=== PATIENT | female | born 1945 | race Caucasian/White ===

== ENCOUNTER 2018-07-20 07:57 | Emergency (ER) | payer MEDICARE ==
[~2018-07-20] VITALS: Ht 160 cm; Wt 71.8 kg
[~2018-07-20 07:57] MED LIST: BIOT25008 PO; CHOL100046 PO; DOCU-28 PO; DULO-31 PO; LEVO100T46 PO; MULT-1085 PO; PANT40TA39 PO; SUMA25TA35 PO; VITA100T PO
[2018-07-20] MEDS ORDERED: ipratropium/albuterol 3ml nebule NEB ONE (08:45)
[2018-07-20] MEDS ORDERED: predniSONE 20 mg tablet PO ONE (08:45)
[2018-07-20] MEDS ORDERED: normal saline 1000ML IV soln IVB ONE (08:45)
[2018-07-20] MEDS ORDERED: BENZ-16 PO (10:06)
[2018-07-20] MEDS ORDERED: PRED20TA PO ×2 (10:06→10:45)
[2018-07-20] MEDS ORDERED: ALBU18HF2 INH (10:06)
[2018-07-20] MEDS ORDERED: benzonatate 100mg capsule PO ONE (10:25)
[2018-07-20 10:38] VITALS: BP 124/71
--- NOTE | 2018-07-20 10:38 | NUR ---
relieving RN for break, pt is resting quietly on gurney, resp even and unlabored,
[2018-07-20 10:42] LABS: BASOPHILS % (AUTO) 0.3 % (0-1); EOSINOPHILS % (AUTO) 0.5 % (0-6); HEMATOCRIT 36.1 % (35.0-45.0); HEMOGLOBIN 12.1 g/dl (12.0-16.0); LYMPHOCYTES # (AUTO) 0.4 X10'3 (1.1-4.8); LYMPHOCYTES % (AUTO) 9.6 % (21-51); MEAN CORPUSCULAR HEMOGLOBIN 31.6 PG (27.0-31.0); MEAN CORPUSCULAR HGB CONC 33.6 g/dL (33.0-36.5); MEAN CORPUSCULAR VOLUME 93.9 FL (78-98); MEAN PLATELET VOLUME 8.3 FL (7.4-10.4); MONOCYTES # (AUTO) 0.5 X10'3 (0-0.9); MONOCYTES % (AUTO) 11.7 % (2-12); NEUTROPHILS # (AUTO) 3.3 X10'3 (1.8-7.7); NEUTROPHILS % (AUTO) 77.9 % (42-75); PLATELET COUNT 158 X10'3 (140-440); RED BLOOD COUNT 3.84 X10'6 (4.20-5.60); RED CELL DISTRIBUTION WIDTH 14.4 % (11.5-14.5); WHITE BLOOD COUNT 4.3 X10'3 (4.5-11.0)
--- NOTE | 2018-07-20 10:43 | NUR ---
PT AMB WITH STEADY GAIT TO RESTROOM
[2018-07-20 10:50] LABS: ALBUMIN 3.5 G/DL (3.4-5.0); ANION GAP 8 (8-16); BLOOD UREA NITROGEN 10 MG/DL (7-18); BUN/CREATININE RATIO 9.6 (6.6-38.0); CALCIUM 8.4 MG/DL (8.5-10.1); CHLORIDE 104 MMOL/L (99-107); CREATININE 1.04 MG/DL (0.40-0.90); GLUCOSE 123 MG/DL (70-104); POTASSIUM 3.8 MMOL/L (3.5-5.1); SODIUM 138 MMOL/L (135-145); TOTAL CARBON DIOXIDE 26.3 MMOL/L (24-32); eGFR 52 ML/MIN
== END 2018-07-20 11:05 | disposition home or self-care (01) ==
LOC: ER 07:58
DX: R05 Cough (principal); R00.0 Tachycardia, unspecified; I48.91 Unspecified atrial fibrillation; M06.9 Rheumatoid arthritis, unspecified; Z95.5 Presence of coronary angioplasty implant and graft; Z79.899 Other long term (current) drug therapy; Z88.0 Allergy status to penicillin
CPT/HCPCS: 36415; 80048; 83605; 85025; 93005; 94640; 94760; 99284; J7030; J7512

== ENCOUNTER 2022-02-24 06:14 | Emergency (ER) | payer MEDICARE ==
[~2022-02-24] VITALS: Ht 160 cm; Wt 74.0 kg
[~2022-02-24 06:14] MED LIST changes: +ALBU18HF2 INH; +PRED20TA PO
[2022-02-24 06:36] LABS: BASOPHILS # (AUTO) 0.1 X10'3 (0-0.2); BASOPHILS % (AUTO) 0.9 % (0-1); EOSINOPHILS # (AUTO) 0.2 X10'3 (0-0.9); EOSINOPHILS % (AUTO) 3.1 % (0-6); HEMATOCRIT 36.3 % (35.0-45.0); HEMOGLOBIN 12.2 g/dl (12.0-16.0); LYMPHOCYTES # (AUTO) 1.4 X10'3 (1.1-4.8); LYMPHOCYTES % (AUTO) 23.8 % (21-51); MEAN CORPUSCULAR HEMOGLOBIN 32.9 PG (27.0-31.0); MEAN CORPUSCULAR HGB CONC 33.7 g/dL (33.0-36.5); MEAN CORPUSCULAR VOLUME 97.8 FL (78-98); MONOCYTES # (AUTO) 0.9 X10'3 (0-0.9); MONOCYTES % (AUTO) 15.2 % (2-12); NEUTROPHILS # (AUTO) 3.3 X10'3 (1.8-7.7); PLATELET COUNT 190 X10'3 (140-440); RED BLOOD COUNT 3.71 X10'6 (4.20-5.60); RED CELL DISTRIBUTION WIDTH 14.9 % (11.5-14.5); WHITE BLOOD COUNT 5.8 X10'3 (4.5-11.0)
[2022-02-24 06:53] LABS: ALANINE AMINOTRANSFERASE 41 U/L (12-78); ALBUMIN 3.6 G/DL (3.4-5.0); ALBUMIN/GLOBULIN RATIO 0.9 (1.1-1.5); ALKALINE PHOSPHATASE 119 IU/L (46-116); ANION GAP 11 (8-16); ASPARTATE AMINO TRANSFERASE 43 U/L (10-37); BILIRUBIN,TOTAL 0.7 MG/DL (0.1-1.0); BLOOD UREA NITROGEN 25 MG/DL (7-18); BUN/CREATININE RATIO 19.8 (6.6-38.0); CHLORIDE 102 MMOL/L (99-107); CREATININE 1.26 MG/DL (0.40-0.90); GLUCOSE 106 MG/DL (70-104); MAGNESIUM 1.9 MG/DL (1.5-2.4); POTASSIUM 3.8 MMOL/L (3.5-5.1); SODIUM 138 MMOL/L (135-145); TOTAL CARBON DIOXIDE 24.8 MMOL/L (24-32); TOTAL PROTEIN 7.4 G/DL (6.4-8.2); eGFR 41 ML/MIN
[2022-02-24] MEDS: metoprolol tartrate 1mg/ml inj IV SCH ×2 (12:15→12:27)
[2022-02-24] MEDS ORDERED: magnesium 2GM in 50ml NS 50 ML IV ONE (12:30)
[2022-02-24] MEDS ORDERED: carVEDilol 3.125mg tablet PO ONE (12:50)
[2022-02-24] MEDS ORDERED: CARV3.1289 PO (17:01)
[2022-02-24 17:04] VITALS: BP 132/67
== END 2022-02-24 17:14 | disposition home or self-care (01) ==
LOC: ER 06:14
DX: I48.20 Chronic atrial fibrillation, unspecified (principal); R00.2 Palpitations; R06.02 Shortness of breath; K21.9 Gastro-esophageal reflux disease without esophagitis; E03.9 Hypothyroidism, unspecified; Z98.890 Other specified postprocedural states; Z88.0 Allergy status to penicillin; Z79.899 Other long term (current) drug therapy
CPT/HCPCS: 36415; 71045; 80053; 83735; 83880; 84443; 84484; 85025; 85610; 93005; 96365; 96366; 96375; 99285; J3475; J3490; A6449

== ENCOUNTER 2022-05-19 11:26 | Inpatient (IN) | payer MEDICARE ==
[~2022-05-19] VITALS: Ht 160 cm; Wt 74.0 kg
[~2022-05-19 11:26] MED LIST changes: +CARV3.1289 PO
[2022-05-19 11:49] LABS: BASOPHILS % (AUTO) 0 % (0-1); EOSINOPHILS % (AUTO) 0 % (0-6); HEMATOCRIT 37.6 % (35.0-45.0); HEMOGLOBIN 12.1 g/dl (12.0-16.0); LYMPHOCYTES # (AUTO) 0.7 X10'3 (1.1-4.8); LYMPHOCYTES % (AUTO) 7.2 % (21-51); MEAN CORPUSCULAR HGB CONC 32.3 g/dL (33.0-36.5); MEAN PLATELET VOLUME 9.8 FL (7.4-10.4); MONOCYTES # (AUTO) 1.6 X10'3 (0-0.9); MONOCYTES % (AUTO) 17.5 % (2-12); NEUTROPHILS # (AUTO) 6.8 X10'3 (1.8-7.7); NEUTROPHILS % (AUTO) 75.3 % (42-75); PLATELET COUNT 210 X10'3 (140-440); RED BLOOD COUNT 3.92 X10'6 (4.20-5.60); RED CELL DISTRIBUTION WIDTH 15.3 % (11.5-14.5); WHITE BLOOD COUNT 9.1 X10'3 (4.5-11.0)
[2022-05-19 12:06] LABS: ALANINE AMINOTRANSFERASE 552 U/L (12-78); ALBUMIN 3.6 G/DL (3.4-5.0); ALBUMIN/GLOBULIN RATIO 0.9 (1.1-1.5); ALKALINE PHOSPHATASE 190 IU/L (46-116); ANION GAP 12 (8-16); ASPARTATE AMINO TRANSFERASE 308 U/L (10-37); BILIRUBIN,TOTAL 2.2 MG/DL (0.1-1.0); BLOOD UREA NITROGEN 52 MG/DL (7-18); BUN/CREATININE RATIO 25.9 (6.6-38.0); CALCIUM 9.1 MG/DL (8.5-10.1); CHLORIDE 99 MMOL/L (99-107); CREATININE 2.01 MG/DL (0.40-0.90); GLUCOSE 82 MG/DL (70-104); POTASSIUM 3.1 MMOL/L (3.5-5.1); SODIUM 138 MMOL/L (135-145); TOTAL CARBON DIOXIDE 26.7 MMOL/L (24-32); TOTAL PROTEIN 7.5 G/DL (6.4-8.2); eGFR 24 ML/MIN
[2022-05-19 12:14] LABS: MAGNESIUM 2.1 MG/DL (1.5-2.4)
[2022-05-19] MEDS ORDERED: furosemide 10 MG/1 ML 10ml inj IV ONE (13:25)
[2022-05-19] MEDS ORDERED: POTASSIUM BICARB 20meq eff tab 20 MEQ TABLET.EFF PO ONE (13:25)
--- NOTE | 2022-05-19 15:33 | NUR ---
[facility] ([place]) [phone]
--- NOTE | 2022-05-19 15:50 | NUR ---
DR JALLOH AT BEDSIDE
[2022-05-19] MEDS ORDERED: BENZ200C53 PO (15:51)
[2022-05-19] MEDS ORDERED: PRED20TA PO (15:51)
[2022-05-19] MEDS ORDERED: FLEC50TA PO (15:51)
[2022-05-19] MEDS ORDERED: PANT40TA54 PO (15:51)
[2022-05-19] MEDS ORDERED: HYDR200T84 PO (15:51)
[2022-05-19] MEDS ORDERED: FURO40TA4 PO (15:51)
[2022-05-19] MEDS ORDERED: GABA-530 PO (15:51)
[2022-05-19] MEDS ORDERED: DULO60CA65 PO (15:51)
[2022-05-19] MEDS ORDERED: LEVO88TA7 PO (15:51)
[2022-05-19] MEDS ORDERED: POTA-188 PO (15:51)
[2022-05-19] MEDS ORDERED: WARF6TAB49 PO (15:51)
[2022-05-19] MEDS ORDERED: ROSU5TAB12 PO (15:51)
--- NOTE | 2022-05-19 16:01 | NUR ---
Break RN: patient in bed awake,no needs at this time.
[2022-05-19] MEDS ORDERED: potassium Cl 40MEQ/1/2NS 520ml 520 ML IV PRN (16:10)
[2022-05-19] MEDS ORDERED: potassium Cl 20 mEq SR tablet PO PRN (16:10)
[2022-05-19] MEDS ORDERED: magnesium 4gm in 100ml NS 100 ML IV PRN (16:10)
[2022-05-19] MEDS ORDERED: acetaminophen 325mg tablet PO PRN (16:10)
[2022-05-19] MEDS ORDERED: ondansetron/PF 4mg/2ml inj IV PRN (16:10)
[2022-05-19] MEDS ORDERED: magnesium hydroxide 30ml (MOM) UD suspension PO PRN (16:10)
[2022-05-19] MEDS ORDERED: magnesium Cl slow-release 64mg tablet PO PRN (16:10)
[2022-05-19] MEDS ORDERED: mag hydrox/Alum hydrox/simeth 30ml oral suspension PO PRN (16:10)
--- NOTE | 2022-05-19 16:41 | NUR ---
pt up to [facility]
[2022-05-19] MEDS ORDERED: benzonatate 100mg capsule PO PRN (16:45)
[2022-05-19] MEDS ORDERED: pantoprazole 40mg Tablet.DR PO PRN (16:45)
[2022-05-19] MEDS ORDERED: gabapentin 100mg capsule PO PRN (16:45)
[2022-05-19] MEDS: docusate sod 100mg capsule PO SCH (20:00)
[2022-05-19] MEDS: K and/or MAG REPLACEMENT MC SCH (20:00)
[2022-05-19] MEDS: furosemide 10 MG/1 ML 10ml inj IV SCH (20:32)
[2022-05-19] MEDS: flecainide 50mg tablet PO SCH (20:32)
[2022-05-19] MEDS: potassium Cl 20 mEq SR tablet PO PRN (20:44)
[2022-05-20 07:00] VITALS: BP 130/54
[2022-05-20] MEDS: K and/or MAG REPLACEMENT MC SCH ×2 (08:00→20:00)
[2022-05-20 08:28] LABS: BASOPHILS % (AUTO) 0.1 % (0-1); EOSINOPHILS % (AUTO) 0 % (0-6); HEMATOCRIT 35.4 % (35.0-45.0); HEMOGLOBIN 11.6 g/dl (12.0-16.0); LYMPHOCYTES # (AUTO) 0.7 X10'3 (1.1-4.8); LYMPHOCYTES % (AUTO) 8.8 % (21-51); MEAN CORPUSCULAR HEMOGLOBIN 30.9 PG (27.0-31.0); MEAN CORPUSCULAR HGB CONC 32.8 g/dL (33.0-36.5); MEAN CORPUSCULAR VOLUME 94.3 FL (78-98); MEAN PLATELET VOLUME 9.1 FL (7.4-10.4); MONOCYTES # (AUTO) 1.3 X10'3 (0-0.9); MONOCYTES % (AUTO) 16.6 % (2-12); NEUTROPHILS % (AUTO) 74.5 % (42-75); PLATELET COUNT 188 X10'3 (140-440); RED BLOOD COUNT 3.75 X10'6 (4.20-5.60); RED CELL DISTRIBUTION WIDTH 14.6 % (11.5-14.5); WHITE BLOOD COUNT 8.1 X10'3 (4.5-11.0)
[2022-05-20 08:53] LABS: ALANINE AMINOTRANSFERASE 461 U/L (12-78); ALBUMIN 3.4 G/DL (3.4-5.0); ALBUMIN/GLOBULIN RATIO 0.9 (1.1-1.5); ALKALINE PHOSPHATASE 168 IU/L (46-116); ANION GAP 7 (8-16); ASPARTATE AMINO TRANSFERASE 231 U/L (10-37); BLOOD UREA NITROGEN 50 MG/DL (7-18); BUN/CREATININE RATIO 27.2 (6.6-38.0); CALCIUM 9.2 MG/DL (8.5-10.1); CHLORIDE 100 MMOL/L (99-107); CREATININE 1.84 MG/DL (0.40-0.90); GLUCOSE 92 MG/DL (70-104); POTASSIUM 3.5 MMOL/L (3.5-5.1); SODIUM 138 MMOL/L (135-145); TOTAL CARBON DIOXIDE 30.7 MMOL/L (24-32); eGFR 27 ML/MIN
[2022-05-20] MEDS: furosemide 10 MG/1 ML 10ml inj IV SCH ×2 (09:32→21:25)
[2022-05-20] MEDS: flecainide 50mg tablet PO SCH ×2 (09:33→21:24)
[2022-05-20] MEDS: duloxetine 30mg CAPSULE.DR PO SCH (09:33)
[2022-05-20] MEDS: docusate sod 100mg capsule PO SCH ×2 (09:33→21:23)
[2022-05-20] MEDS: potassium chloride 10mEq ER tablet PO SCH (09:34)
[2022-05-20] MEDS: atorvastatin 20mg tablet PO SCH (09:34)
[2022-05-20] MEDS: predniSONE 20 mg tablet PO SCH (09:34)
[2022-05-20 10:00] VITALS: BP 108/46
[2022-05-20] MEDS: hydroxychloroquine 200mg tablet PO SCH (11:23)
[2022-05-20] MEDS: levoTHYROXINE 88mcg tablet PO SCH (11:23)
[2022-05-20 18:00] VITALS: BP 98/53
[2022-05-20 22:00] VITALS: BP 133/76
[2022-05-21 02:00] VITALS: BP 138/71
--- NOTE | 2022-05-21 03:50 | NUR ---
Student documentation: I have reviewed and agree with all interventions, assessments performed and documented by Joi, student RN.
[2022-05-21 06:00] VITALS: BP 130/76
--- NOTE | 2022-05-21 06:30 | NUR ---
Problems reprioritized. Patient report given, questions answered & plan of care reviewed with Shavonne CLIFTON.
[2022-05-21 06:41] LABS: BASOPHILS % (AUTO) 0.1 % (0-1); EOSINOPHILS % (AUTO) 0 % (0-6); HEMATOCRIT 34.9 % (35.0-45.0); HEMOGLOBIN 11.2 g/dl (12.0-16.0); LYMPHOCYTES # (AUTO) 0.7 X10'3 (1.1-4.8); LYMPHOCYTES % (AUTO) 9.9 % (21-51); MEAN CORPUSCULAR HEMOGLOBIN 30.5 PG (27.0-31.0); MEAN CORPUSCULAR HGB CONC 32.1 g/dL (33.0-36.5); MEAN CORPUSCULAR VOLUME 94.9 FL (78-98); MEAN PLATELET VOLUME 9.1 FL (7.4-10.4); MONOCYTES % (AUTO) 15.1 % (2-12); NEUTROPHILS % (AUTO) 74.9 % (42-75); PLATELET COUNT 173 X10'3 (140-440); RED BLOOD COUNT 3.68 X10'6 (4.20-5.60); RED CELL DISTRIBUTION WIDTH 14.9 % (11.5-14.5); WHITE BLOOD COUNT 6.7 X10'3 (4.5-11.0)
[2022-05-21 06:59] LABS: ALANINE AMINOTRANSFERASE 369 U/L (12-78); ALBUMIN 3.1 G/DL (3.4-5.0); ALBUMIN/GLOBULIN RATIO 0.9 (1.1-1.5); ALKALINE PHOSPHATASE 151 IU/L (46-116); ANION GAP 8 (8-16); ASPARTATE AMINO TRANSFERASE 138 U/L (10-37); BLOOD UREA NITROGEN 45 MG/DL (7-18); BUN/CREATININE RATIO 26.6 (6.6-38.0); CALCIUM 8.9 MG/DL (8.5-10.1); CHLORIDE 100 MMOL/L (99-107); CREATININE 1.69 MG/DL (0.40-0.90); GLUCOSE 103 MG/DL (70-104); MAGNESIUM 2.1 MG/DL (1.5-2.4); POTASSIUM 3.1 MMOL/L (3.5-5.1); SODIUM 140 MMOL/L (135-145); TOTAL PROTEIN 6.6 G/DL (6.4-8.2); eGFR 29 ML/MIN
[2022-05-21] MEDS: atorvastatin 20mg tablet PO SCH (07:58)
[2022-05-21] MEDS: duloxetine 30mg CAPSULE.DR PO SCH (07:58)
[2022-05-21] MEDS: flecainide 50mg tablet PO SCH (07:58)
[2022-05-21] MEDS: potassium chloride 10mEq ER tablet PO SCH (07:58)
[2022-05-21] MEDS: predniSONE 20 mg tablet PO SCH (07:59)
[2022-05-21] MEDS: hydroxychloroquine 200mg tablet PO SCH (08:00)
[2022-05-21] MEDS: levoTHYROXINE 88mcg tablet PO SCH (08:00)
[2022-05-21] MEDS: docusate sod 100mg capsule PO SCH (08:00)
[2022-05-21] MEDS: furosemide 10 MG/1 ML 10ml inj IV SCH (08:01)
[2022-05-21] MEDS: potassium Cl 20 mEq SR tablet PO PRN (08:05)
[2022-05-21] MEDS: K and/or MAG REPLACEMENT MC SCH (08:08)
[2022-05-21 11:00] VITALS: BP 120/76
[2022-05-21] MEDS ORDERED: TORS20TA3 PO (13:02)
--- NOTE | 2022-05-21 14:20 | NUR ---
Patient discharged in stable condition to home with . Iv removed tip intact no complications. Belongings sent with pt. Pt educated on new prescriptions/discharge follow up.
[2022-05-21] MEDS ORDERED: warfarin 3mg tablet PO SCH (21:00)
== END 2022-05-21 14:20 | disposition home or self-care (01) | DRG 291 ==
LOC: ER 11:27 → ED HOLD 16:08 → EDBEDREQ 05-20 05:53 → ORTHO 4S 05-20 06:50
PROVIDERS: ADMIT Family Medicine; ATTEND Family Medicine
DX: I13.0 Hypertensive heart and chronic kidney disease with heart failure and stage 1 through stage 4 chronic kidney disease, or unspecified chronic kidney disease (principal); I50.33 Acute on chronic diastolic (congestive) heart failure; E03.9 Hypothyroidism, unspecified; Z66 Do not resuscitate; E78.5 Hyperlipidemia, unspecified; N18.9 Chronic kidney disease, unspecified; R74.01 Elevation of levels of liver transaminase levels; K76.1 Chronic passive congestion of liver; K57.90 Diverticulosis of intestine, part unspecified, without perforation or abscess without bleeding; I27.20 Pulmonary hypertension, unspecified; E87.6 Hypokalemia; K21.9 Gastro-esophageal reflux disease without esophagitis; R74.8 Abnormal levels of other serum enzymes; K76.0 Fatty (change of) liver, not elsewhere classified; I48.91 Unspecified atrial fibrillation; M06.9 Rheumatoid arthritis, unspecified; R29.6 Repeated falls; Z87.891 Personal history of nicotine dependence; Z88.0 Allergy status to penicillin; Z90.710 Acquired absence of both cervix and uterus; Z95.0 Presence of cardiac pacemaker; Z79.01 Long term (current) use of anticoagulants; Z79.899 Other long term (current) drug therapy
CPT/HCPCS: 36415; 71045; 76700; 80053; 83735; 83880; 84484; 85025; 85610; 87081; 93005; 97161; 97530; 99285; G0378; J1940; J7512